=== PATIENT | female | born 1995 | race Caucasian/White ===

== ENCOUNTER 2017-08-02 21:01 | Emergency (ER) | payer OTHER ==
[~2017-08-02 21:01] MED LIST: MOTR200T PO; [UNRECOGNIZED DRUG - REMARK] PO
[2017-08-02 21:04] VITALS: BP 131/62; PULSE 80; RESP 16; TEMP 98.2; O2SAT 100
[2017-08-02] MEDS ORDERED: SODIUM CHLORIDE 0.9% FLUSH 10 ML FLUSH IVF PRN (22:00)
--- NOTE | 2017-08-02 22:11 | PD ---
HPI Chief Complaint: Neuro Symptoms/ Deficits Time Seen by Provider: 21:44 Travel History International Travel<30 days: No Contact w/Intl Traveler<30days: No Traveled to known affect area: No History of Present Illness HPI 22-year-old female arrives describing paresthesias in the foot on the left side as well as in the hand on the right side followed by aphagia which lasted about 4 minutes. The symptoms occurred about an hour ago. After they resolve the patient had a headache very mild generalized. No chest pain shortness of breath fever chills nausea vomiting. Onset occurred at rest. Timing resolved. No history of stroke. The patient is a past medical history. She denies drugs alcohol. She is 24 weeks and is a 3 para 1. She follows with [facility]. 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) Respiratory: No Thyroid Disease: No ?: Past Surgical History Abdominal Surgery: No Cardiac Surgery: No Ear Surgery: No Endocrine Surgery: No Eye Surgery: No Genitourinary Surgery: No Gynecologic Surgery: No Joint Replacement: No Pacemaker: No Thoracic Surgery: No Tonsillectomy: Yes Social History Alcohol Use: No Tobacco Use: No Substance Use: No Allergies-Medications (Allergen,Severity, Reaction): Coded Allergies: Sulfa (Sulfonamide Antibiotics) (Unverified Allergy, Intermediate, Hives, 02/19/17) sulfamethoxazole (Unverified Allergy, Intermediate, Hives, 02/19/17) trimethoprim (Unverified Allergy, Intermediate, Hives, 02/19/17) Reported Meds & Prescriptions Reported Meds & Active Scripts Active Reported Ibuprofen 200 Mg Tab 200 Mg PO Q4H PRN [baby and me ] 1 Chew PO QID Review of Systems Except as stated in HPI: all other systems reviewed are Neg Physical Exam Narrative GENERAL: 22 yo F, WNWD, NAD SKIN: Warm and dry. HEAD: Normocephalic. EYES: No scleral icterus. No injection or drainage. NECK: Supple, trachea midline. No JVD or lymphadenopathy. CARDIOVASCULAR: Deferred as patient stated she may wish to leave AMA RESPIRATORY: Deferred as patient stated she may wish to leave AMA GASTROINTESTINAL: Deferred as patient stated she may wish to leave AMA MUSCULOSKELETAL: No cyanosis, or edema. NEUROLOGIC: Cranial nerves II-12 normal. Normal gait. No motor function abnormality. Speech memory mentation normal. BACK: Nontender without obvious deformity. No CVA tenderness. Data Data Last Documented VS Vital Signs Date Time Temp Pulse Resp B/P (MAP) Pulse Ox O2 Delivery O2 Flow Rate FiO2 08/02/17 21:04 98.2 80 16 131/62 (85) 100 Room Air Orders Orders Electrocardiogram (08/02/17 21:51) Sodium Chloride 0.9% Flush (Ns Flush) (08/02/17 22:00) Ed Discharge Order (08/02/17 22:11) [facility] Medical Decision Making Medical Screen Exam Complete: Yes Emergency Medical Condition: Yes Medical Record Reviewed: Yes Differential Diagnosis TIA, CVA, MS, electrolyte imbalance, UTI Narrative Course Pt elects to leave AMA. She understands that she will understand that she is welcome to stay in the ER and that we would perform CT scan bloodwork and plan for an MRI. She states she'll return in the morning. She understands she can return any time however by leaving now she is at risk for a untoward neurologic event potentially a stroke with subsequent disability pain and suffering dependence on others not limited to . Patient verbalized understanding and demonstrates excellent insight capacity. Unfortunately given the gravity of her complaints I do not believe it's safe for her to be discharged without doing so under the AMA guidelines. Pt is quite reliable on her history and I do believe she'll return tomorrow. Diagnosis Primary Impression: Left against medical advice Disposition: LEFT WITHOUT BEING SEEN Condition: Stable Mello Pitts MD Aug 02, 2017 22:11
== END 2017-08-03 04:10 | disposition left against medical advice (07) ==
LOC: NEPC 21:01
DX: O26.892 Other specified pregnancy related conditions, second trimester (principal); R20.2 Paresthesia of skin; R51 Headache; Z3A.24 24 weeks gestation of pregnancy; Z88.2 Allergy status to sulfonamides; Z88.8 Allergy status to other drugs, medicaments and biological substances
CPT/HCPCS: 99281